=== PATIENT | male | born 1965 | race Caucasian/White ===

== ENCOUNTER 2019-11-20 10:01 | Outpatient (CLI) | payer OTHER, SELFPAY ==
--- NOTE | 2019-11-27 11:32 | WPDPFTINT ---
PFT Interpretation PFT Interpretation: This PFT met all criteria for ATS standards and reproducibility FEV/FVC pre bronchodilator 66% FEV1 82% FVC 88% No bronchodilator challenge was given TLC 107% RV 131% RV/TLC 41% DLCO 77% when adjusted for alveolar volume but not adjusted for hemoglobin Flow volume loops showed some end expiratory coving Impression: This PFT interpretation is limited due lack of post bronchodilator spirometry. Mild airflow obstruction is presents with air trapping and mildly reduced diffusion capacity. This may represent mild COPD but I cannot rule out an Asthma component. Clinical correlation is advised.
== END 2019-11-20 10:02 | disposition home or self-care (01) ==
LOC: ANHPFT 10:02
PROVIDERS: PCP Internal Medicine; Visit Provider Internal Medicine
DX: R06.2 Wheezing (principal)
CPT/HCPCS: 94375; 94726; 94729